=== PATIENT | male | born 1990 | race African-American/Black ===

== ENCOUNTER 2022-12-27 16:00 | Emergency (ER) | payer BC, SELFPAY ==
[2022-12-27 16:48] VITALS: BP 142/94; PULSE 74; RESP 18; TEMP 37.3; O2SAT 98; BMI 32.1
--- NOTE | 2022-12-27 17:07 | EXP.UTC ---
Discharge Plan Disposition Patient Disposition: Home, Self-Care Condition: Good Prescriptions Prescriptions: New prednisone 10 mg tablet 10 mg PO DIRECTED 9 Days Qty: 21 0RF Rx Instructions: Take 4 tablets daily for 3 days, then take 2 tablets daily for 3 days, then take 1 tablet daily for 3 days, then stop. acyclovir 800 mg tablet 800 mg PO 5XDAY 7 Days Qty: 35 0RF ibuprofen [IBU] 800 mg tablet 800 mg PO Q8HP PRN (Reason: Moderate Pain) Qty: 30 0RF Referrals Follow up/Referrals: Provider,Referral, MD [Primary Care Provider] - See instructions Activity Restrictions/Add. Instructions Additional Instructions/Restrictions: Drink plenty of fluids. Take the ibuprofen for pain that we prescribed. Take the medications as directed. Follow up with your regular doctor. GO TO THE ER FOR ANY WORSENING SYMPTOMS Clinical Impressions Clinical Impression: Shingles Stand Alone Forms Stand Alone Forms: Work/School Release Instructions Patient Instructions: [facility] [place] for Shingles Discharge ED Provider: Henri Ballard [facility] General Stated complaint: rash l side top hip Mode of Arrival: Ambulatory Source of Information: Patient Limitations: No Limitations Time Seen by Provider: 12/27/22 17:07 Description of Symptoms (Recalled from Triage Doc. by RN): pt reports a rash to the left side of his back that started yesterday, it has doubled in size since yesterday according to pt, pt states he has had shingles before and it looks like it did when he has had it previously, states it is itching HEENT Symptoms (Recalled from RN notes): No Resp Symptoms (Recalled from RN notes): No Skin Symptoms (Recalled from RN notes): Yes (rash to back) MS Symptoms (Recalled from RN notes): No Functional Status (Recalled from RN notes): wnl History of Present Illness Provider Complaint: He reports that for the past 4 days he has had a worsening painful rash on the left side of his middle back. There is a patch of bumps there also. He states that the rash is painful and it itches. He denies other complaints. Related Data Previous Rx's Medication Instructions Recorded acyclovir 800 mg tablet 800 mg PO 5XDAY 7 days #35 tabs 12/27/22 ibuprofen 800 mg tablet (IBU) 800 mg PO Q8HP PRN Moderate Pain 12/27/22 #30 tabs prednisone 10 mg tablet 10 mg PO DIRECTED 9 days #21 12/27/22 tabs Allergies Allergy/AdvReac Type Severity Reaction Status Date / Time No Known Allergies Allergy Verified 12/27/22 16:52 Worker's Comp Is this a Worker's Comp case?: No Is this an [facility] Worker's Comp?: No Is this a [place] Worker's Comp?: No [facility] Disclaimer: The information contained in this section may have been updated after the patient was seen, as this information can be updated by other users. Social History Smoking Status: Never smoker alcohol intake: never current occupational status: employed Travel in the last 8 weeks: None ROS Obtained: Yes All systems reviewed & no additional complaints except as documented Constitutional Constitutional: Denies chills and Denies fever(s) Eyes Eyes: Denies eye discharge ENT Ears, Nose, Mouth, and Throat: Denies dizziness, Denies otalgia and Denies sore throat Cardiovascular Cardiovascular: Denies chest pain Respiratory Respiratory: Denies shortness of breath, Denies chest congestion, Denies cough, Denies stridor and Denies wheezing Gastrointestinal Gastrointestingal: Denies nausea or vomiting Musculoskeletal Musculoskeletal: Reports system reviewed and no additional complaints, except as documented and Denies arthralgias Integumentary/Breasts Skin/Breast: Reports rash Neurologic Neurologic: Denies dizziness and Denies paresthesias Allergic/Immunologic Allergic/Immunologic: Denies wheezing Physical Exam General General appearance: alert and in no apparent distress Head Head exam: atraumatic, n
[2022-12-27 17:34] VITALS: BP 142/94; PULSE 74; RESP 18; TEMP 37.3; O2SAT 98
== END 2022-12-27 17:37 | disposition home or self-care (01) ==
PROVIDERS: Emergency Provider Nurse Practitioner Family
DX: B02.9 Zoster without complications (principal)
CPT/HCPCS: 99204; 99212; G0463

== ENCOUNTER 2022-12-31 13:05 | Emergency (ER) | payer BC, SELFPAY ==
[2022-12-31 13:20] VITALS: BP 136/95; PULSE 81; RESP 15; TEMP 36.7; O2SAT 99; BMI 39.0
--- NOTE | 2022-12-31 13:40 | EXP.UTC ---
Discharge Plan Disposition Patient Disposition: Home, Self-Care Condition: Good Prescriptions Prescriptions: New valacyclovir [Valtrex] 1 gram tablet 1,000 mg PO Q8H 7 Days Qty: 21 0RF No Action prednisone 10 mg tablet 10 mg PO DIRECTED 9 Days Qty: 21 0RF Rx Instructions: Take 4 tablets daily for 3 days, then take 2 tablets daily for 3 days, then take 1 tablet daily for 3 days, then stop. acyclovir 800 mg tablet 800 mg PO 5XDAY 7 Days Qty: 35 0RF ibuprofen [IBU] 800 mg tablet 800 mg PO Q8HP PRN (Reason: Moderate Pain) Qty: 30 0RF Referrals Follow up/Referrals: Provider,Referral, MD [Primary Care Provider] - See instructions Activity Restrictions/Add. Instructions Additional Instructions/Restrictions: Stop taking the acylovir and start the new medication Valcyclovir Over the counter Calamine lotion may help with itching and help to dry the rash Oatmeal soaks may help to dry the rash and help with itching Make sure to cover lesions if you are going to be out and if they are oozing Follow up with your Family Doctor if no improvement or any worsening of symptoms Clinical Impressions Clinical Impression: Shingles Stand Alone Forms Stand Alone Forms: Work/School Release Discharge ED Provider: Patrizia Randhawa [facility] [place] HPI General Stated complaint: Diagnosed shingles 12/27, spreading Mode of Arrival: Ambulatory Source of Information: Patient Limitations: No Limitations Time Seen by Provider: 12/31/22 13:30 Description of Symptoms (Recalled from Triage Doc. by RN): PATIENT STATES HE WAS SEEN AT [facility] ON SATURDAY FOR SHINGLES AND REPORTS THEY ARE SPREADING, OPEN AND WEEPING HEENT Symptoms (Recalled from RN notes): No Resp Symptoms (Recalled from RN notes): No Skin Symptoms (Recalled from RN notes): Yes MS Symptoms (Recalled from RN notes): No Functional Status (Recalled from RN notes): WNL History of Present Illness Provider Complaint: Patient states that he was recently seen and treated for shingles however he is advising he is having new blisters popping up on his left side and a few on left side of abdomen Related Data Previous Rx's Medication Instructions Recorded acyclovir 800 mg tablet 800 mg PO 5XDAY 7 days #35 tabs 12/27/22 ibuprofen 800 mg tablet (IBU) 800 mg PO Q8HP PRN Moderate Pain 12/27/22 #30 tabs prednisone 10 mg tablet 10 mg PO DIRECTED 9 days #21 12/27/22 tabs valacyclovir 1 gram tablet 1,000 mg PO Q8H 7 days #21 tabs 12/31/22 (Valtrex) Allergies Allergy/AdvReac Type Severity Reaction Status Date / Time No Known Allergies Allergy Verified 12/27/22 16:52 Worker's Comp Is this a Worker's Comp case?: No PFSH PFS Disclaimer: The information contained in this section may have been updated after the patient was seen, as this information can be updated by other users. Social History (Updated 12/28/22 @ 23:23 by Henri Ballard APRN) Smoking Status: Never smoker alcohol intake: never current occupational status: employed Travel in the last 8 weeks: None ROS Obtained: Yes All systems reviewed & no additional complaints except as documented and Yes Systems reviewed as appropriate & no additional complaints except as documented Constitutional Constitutional: Reports system reviewed and no additional complaints, except as documented and Reports as per HPI Cardiovascular Cardiovascular: Reports system reviewed and no additional complaints, except as documented and Reports as per HPI Respiratory Respiratory: Reports system reviewed and no additional complaints, except as documented and Reports as per HPI Gastrointestinal Gastrointestingal: Reports system reviewed and no additional complaints, except as documented and as per HPI Integumentary/Breasts Skin/Breast: Reports system reviewed and no additional complaints, except as documented, Reports as per HPI and Reports other Comments: Recently dx with shingles having new blisters coming up on side Physic
[2022-12-31 14:05] VITALS: BP 136/95; PULSE 81; RESP 15; TEMP 36.7; O2SAT 99
== END 2022-12-31 14:08 | disposition home or self-care (01) ==
PROVIDERS: Emergency Provider Nurse Practitioner
DX: B02.9 Zoster without complications (principal)
CPT/HCPCS: 99204; 99212; G0463